=== PATIENT | male | born 1965 | race Caucasian/White ===

== ENCOUNTER → 2017-08-03 18:27 | Outpatient (CLI) | payer BC, SELFPAY ==
--- NOTE | 2017-08-03 12:00 | VOCOB_PTH ---
PATIENT: MIRTHA VORA LOC: [facility] U#:[id number] AGE/SX: 60/M ROOM: RE08/03/[address]: Dr. Rene Mendoza MD : [id number] BED: DIS: SPEC #: [id number] RECD: 08/04/17 10:29 STATUS: CONNIE JERRY #: [id number] BAILEE: 08/03/17 12:[address]: Rene Mendoza DEPT: SURGICAL PATHOLOGY RECD BY: Jeremie Jimenes ENTERED: 08/04/17 10:29 SP TYPE: VOCAL CORD OTHR DR: Dr. Michael Anglin MD [facility] Tissues: Vocal cord, NOS Procedures: Surgery Specimen Level IV HEADER OPERATION: Microlaryngoscopy with stripping of vocal cords PRE-OP DIAGNOSIS: Dysphonia, polyp of vocal cord and larynx TISSUE SUBMITTED: Vocal cord polyp MICROSCOPIC DIAGNOSIS Vocal cord polyp, biopsy: Benign vocal cord polyp. AM:malou 08/05/17 MICROSCOPIC DESCRIPTION Slides are reviewed. GROSS DESCRIPTION Received is one container labeled with the patient's name and not further designated. The specimen consists of multiple irregular fragments of light stovall soft tissue that in aggregate measure 0.6 x 0.5 x 0.1 cm. The specimen is totally submitted in one cassette. / SJ:rg 08/04/17 TC:5 CPT: 38980
== END ==
PROVIDERS: Visit Provider Otolaryngology Otolaryngology/Facial Plastic Surgery
DX: J38.1 Polyp of vocal cord and larynx (principal); R49.0 Dysphonia
CPT/HCPCS: 88305

== ENCOUNTER → 2018-03-29 07:17 | Outpatient (CLI) | payer BC, SELFPAY ==
--- NOTE | 2018-03-29 08:06 | RAD_ITS ---
STUDY: X-RAY - ESOPHAGUS (BARIUM SWALLOW) WITH FLUOROSCOPY REASON FOR EXAM: Male, 52 years old. Dysphagia for solids. TECHNIQUE: 23 view(s) of the esophagus were obtained following swallowing of barium. FLUOROSCOPY TIME (if supplied): (0:30) minutes/seconds COMPARISON: None. FINDINGS: There is no demonstrated esophageal foreign body. There is no demonstrated stricture or mucosal abnormality. There is a small hiatal hernia of the fundus of the stomach. No evidence of gastroesophageal reflux. The patient ingested a 12 mm tablet of barium without any difficulty. Normal visualized aortic arch and descending thoracic aorta. Normal visualized pulmonary parenchyma. Normal visualized osseous structures of the thorax. RAD/Esophagus Only IMPRESSION: Small sliding hiatal hernia without gastroesophageal reflux. Electronically Signed: Tristen Lyon MD at 13:17 EDT Tel [phone], Service support ,
== END ==
PROVIDERS: Referring Provider Otolaryngology Otolaryngology/Facial Plastic Surgery; Visit Provider Otolaryngology Otolaryngology/Facial Plastic Surgery
DX: R13.10 Dysphagia, unspecified (principal)
CPT/HCPCS: 74220

== ENCOUNTER → 2019-02-04 07:12 | Outpatient (CLI) | payer OTHER, SELFPAY ==
--- NOTE | 2019-02-04 07:36 | MRI_ITS ---
STUDY: MRI LEFT THUMB REASON FOR EXAM: Male, 53 years old. Pain TECHNIQUE: Standardized fat and water weighted pulse sequences were obtained in all 3 orthogonal planes. COMPARISON: None. FINDINGS: FIRST DIGIT: There is arthritic change with joint space narrowing and mild spurring at the first carpometacarpal articulation. Normal visualized first metacarpus. There is mild joint space narrowing and spurring of the metacarpophalangeal joint. There is mild joint space narrowing of the interphalangeal joint. Normal proximal, and distal phalanges. Normal flexor and extensor tendons. There is partial sprain of the ulnar collateral ligament at the metacarpophalangeal joint, series 4 image /. Normal visualized thenar muscles. There are no solid, cystic or lipomatous masses. There is no acute fracture. MRI/Upper Ext/No Jt/ wo IMPRESSION: No fracture or periosteal reaction. Arthritic change. No erosions. Partial sprain of the ulnar collateral ligament at the MCP joint. Electronically Signed: Yunior Contreras MD at 11:57 EDT , Service support ,
== END ==
PROVIDERS: Referring Provider Family Medicine; Visit Provider Family Medicine
DX: S63.602A Unspecified sprain of left thumb, initial encounter (principal); M65.312 Trigger thumb, left thumb; X58.XXXA Exposure to other specified factors, initial encounter; Y93.9 Activity, unspecified; Y92.9 Unspecified place or not applicable; Y99.9 Unspecified external cause status
CPT/HCPCS: 73218